=== PATIENT | female | born 1945 | race American Indian/Alaskan Native ===

== ENCOUNTER 2016-06-18 10:20 | Emergency (ER) | payer OTHER, MEDICARE ==
[2016-06-18] MEDS ORDERED: PERCOCET 5/325 PO ONE (11:03)
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
[2016-06-18 12:50] VITALS: BP 176/79
== END 2016-06-18 13:05 | disposition home or self-care (01) ==
LOC: ED 10:20
DX: S29.019A Strain of muscle and tendon of unspecified wall of thorax, initial encounter (principal); S66.911A Strain of unspecified muscle, fascia and tendon at wrist and hand level, right hand, initial encounter; S80.11XA Contusion of right lower leg, initial encounter; E11.9 Type 2 diabetes mellitus without complications; Z85.3 Personal history of malignant neoplasm of breast; Z86.711 Personal history of pulmonary embolism; Z86.718 Personal history of other venous thrombosis and embolism; Z87.39 Personal history of other diseases of the musculoskeletal system and connective tissue; V49.49XA Driver injured in collision with other motor vehicles in traffic accident, initial encounter; Y93.9 Activity, unspecified; Y92.9 Unspecified place or not applicable; Y99.9 Unspecified external cause status
CPT/HCPCS: 72070; 72100; 99283

== ENCOUNTER 2018-11-06 09:37 | Outpatient (CLI) | payer BC ==
[2018-11-06 10:43] LABS: Calcium 8.8 mg/dL (8.4-10.2)
--- NOTE | 2018-11-06 13:45 | Vascular Lab Report ---
DUPLEX DOPPLER LOWER EXTREMITY VEINS, BILATERAL INDICATION: Bilateral lower extremity swelling. TECHNIQUE: Duplex doppler imaging was performed through the veins of both lower extremities using ve nous compression and other maneuvers. COMPARISON: No relevant prior imaging study available. FINDINGS: Right Common femoral vein: Negative. Right Superficial femoral vein: Negative. Right Popliteal vein: Negative. Right Calf veins: Negative. Left Common femoral vein: Negative. Left Superficial femoral vein: Negative. Left Popliteal vein: Negative. Left Calf veins: Negative. Additional findings: None.. IMPRESSION: No sonographic evidence for DVT in either lower extremity. Signer Name: Joey Mckeon Jr, MD Signed: 11/06/2018 1:41 PM Workstation Name: [id number]
== END 2018-11-06 09:38 | disposition home or self-care (01) ==
LOC: CT 09:37
PROVIDERS: ATTEND Internal Medicine
DX: R22.43 Localized swelling, mass and lump, lower limb, bilateral (principal); J20.9 Acute bronchitis, unspecified; R06.09 Other forms of dyspnea
CPT/HCPCS: 36415; 80048; 82785; 85379; 93970

== ENCOUNTER 2019-01-04 07:13 | Day surgery (SDC) | payer BC ==
[2019-01-04 08:52] VITALS: BP 139/61
[2019-01-04] MEDS ORDERED: HEPARIN/NS 5000 UNIT/500ML 500 ML IR ONE (10:58)
--- NOTE | 2019-01-04 11:07 | Short Stay Summary ---
Short Stay Documentation Date of service: 01/04/19 - History Principal diagnosis: Breast cancer Past Medical History: cancer Past Surgical History: Other (breast surgery, left LN dissection) Social history: no significant social history - Allergies and Medications Current Medications: Allergies latex Allergy (Severe, Verified 06/02/14 06:22) Anaphylaxis Home Medications Medication Instructions Recorded Confirmed Last Taken Type HYDROcodone/APAP 5-325 [[place] 1 each PO Q6HR PRN #20 tablet 06/18/16 01/04/19 01/03/19 Rx 5/325] 1 tab Apixaban [Eliquis] 5 mg PO BID 01/04/19 01/04/19 01/03/19 History 5 mg RX: Albuterol Sulfate [Proair 2 puff INHALATION Q6H PRN 01/04/19 01/04/19 12/27/18 History Respiclick] 2 puff RX: Amiodarone [Cordarone 200 MG 200 mg PO DAILY 01/04/19 01/04/19 01/03/19 History TAB] 200 mg - Physical exam General appearance: no acute distress Integumentary: no rash, no growths HEENT: Atraumatic Lungs: Normal air movement Breasts: deferred Heart: Regular rate Gastrointestinal: normal Female Genitourinary: deferred Rectal Exam: deferred Neurological: Normal gait, Normal speech - Brief post op/procedure progress note Date of procedure: 01/04/19 Pre-op diagnosis: Breast cancer Post-op diagnosis: same Procedure: right brachial PICC placement Anesthesia: local Surgeon: VIKRAM COATES Estimated blood loss: minimal Pathology: none Condition: stable - Disposition Condition at discharge: Good Disposition: DC-01 TO HOME OR SELFCARE Short Stay Discharge Plan Activity: advance as tolerated Weight Bearing Status: Weight Bear as Tolerated Diet: regular Wound: keep clean and dry, per your surgeon's advice Follow up with: MECCA SNEED MD [Primary Care Provider] - 7 Days
[2019-01-04] MEDS ORDERED: MIDAZOLAM 2 MG/2 ML INJ ONE (11:19)
[2019-01-04] MEDS ORDERED: fentaNYL 100 MCG/2 ML INJ ONE (11:19)
[2019-01-04] MEDS: LIDOCAINE (2%) 20 MG/1 ML VIAL 20 ML MDV INFILTRATI ONE ×2 (11:30→11:37)
--- NOTE | 2019-01-04 11:49 | Operative Report ---
Operative Report Operative Report: Exam: Ultrasound and fluoroscopic guided placement of PICC Clinical indication: Patient with history of breast cancer, poor IV access, PICC for CT scan Date: 01/04/2019 Procedure: Following an explanation of the risks, benefits and alternatives; written informed consent was obtained. The patient was brought to the angiographic suite and placed in supine position on the examination table. Initial ultrasound evaluation of the arm demonstrated a patent right brachial vein. The patient's right upper arm was prepped and draped in usual sterile fashion. 1% lidocaine was used for anesthesia. Under ultrasound guidance, the right brachial vein was cannulated with a 7 cm 21-gauge needle. A 0.018 guidewire was advanced to the IVC under fluoroscopy to document intravenous positioning. The needle was removed and a 5.5 Maori peel- away sheath placed over the guidewire. Following standard guidewire me asurements, the guidewire was removed and the PICC catheter cut to length and inserted to the peel-away sheath. The PICC was advanced with the aid of the guidewire. The tip of the PICC was positioned in the proximal right atrium. Both ports flushed and aspirated easily and were then locked with sterile saline. The catheter was securely fastened skin surface using a StatLock device and a sterile dressing applied. The patient tolerated the procedure well. There were no immediate post procedure complications. Sedation was not utilized. Continuous cardiopulmonary monitoring was utilized. Impression: Ultrasound and fluoroscopic guided placement of PICC via the right brachial vein.
[2019-01-04 12:19] LABS: Calcium 8.8 mg/dL (8.4-10.2)
--- NOTE | 2019-01-04 13:17 | Cat Scan Report ---
CTA CHEST WITH IV CONTRAST INDICATION: pe. TECHNIQUE: Axial CT images were obtained through the chest after injection of 100 cc Omnipaque 350 IV contrast. 3 plane MIP reconstructions were produced. All CT scans at this location are performed using CT dose reduction for ALARA by means of automated exposure control. COMPARISON: None available. FINDINGS: PULMONARY ARTERIES: No pulmonary emboli. THORACIC AORTA: No acute abnormality. HEART: Moderately enlarged. . CORONARY ARTERIES: Moderate calcification. PLEURA: No pleural effusion. No pneumothorax. LYMPH NODES: No significant adenopathy. LUNGS: No acute air space or interstitial disease. ADDITIONAL FINDINGS: Right PICC line in SVC UPPER ABDOMEN: Gastric Larry-en-Y bypass surgery. SKELETAL STRUCTURES: No significant osseous abnormality. IMPRESSION: 1. No CT evidence for pulmonary embolism. 2. Cardiomegaly without CHF. Signer Name: Bart Yañez MD Signed: 01/04/2019 1:12 PM Workstation Name: [id number]
== END 2019-01-04 14:00 | disposition home or self-care (01) ==
LOC: CT 07:13
PROVIDERS: ATTEND Internal Medicine
DX: I26.99 Other pulmonary embolism without acute cor pulmonale (principal); I51.7 Cardiomegaly
CPT/HCPCS: 36415; 71275; 76937; 77001; 80048; 82565; 84520; C1751; J1644; Q9967; 36569; J2250; J3010